=== PATIENT | female | born 1965 | race Caucasian/White ===

== ENCOUNTER 2017-05-06 21:02 | Emergency (ER) | payer MEDICAID ==
[~2017-05-06] VITALS: Ht 172.7 cm; Wt 81.6 kg
[2017-05-06 21:10] VITALS: BP 135/93
== END 2017-05-07 00:09 | disposition left against medical advice (07) ==
LOC: ER 21:02
DX: M79.644 Pain in right finger(s) (principal); Z53.21 Procedure and treatment not carried out due to patient leaving prior to being seen by health care provider
CPT/HCPCS: 73140